=== PATIENT | male | born 1990 | race Two or more races ===

== ENCOUNTER 2018-01-20 21:06 | Emergency (ER) | payer OTHER, BC ==
[~2018-01-20] VITALS: Ht 175.3 cm; Wt 63.5 kg
[2018-01-20 21:18] VITALS: BP 141/78
--- NOTE | 2018-01-20 21:21 | NUR ---
PT TO ER BED 14. BIB [facility]/[employer] IN CUSTODY FROM STREET FOR ETOH/OTB. PT PLACED ON AUTO BATTERY BUILDER. VSS/RESP EVEN UNLABORED/NAD NOTED/SKIN WARM AND DRY/AFEBRILE/DENIES N-V-D/AOX4. AWAITNG MD RAINES.
== END 2018-01-20 23:00 ==
LOC: ER 21:10
DX: S90.512A Abrasion, left ankle, initial encounter (principal); S80.212A Abrasion, left knee, initial encounter; F10.129 Alcohol abuse with intoxication, unspecified; R00.0 Tachycardia, unspecified; X50.9XXA Other and unspecified overexertion or strenuous movements or postures, initial encounter; Y93.89 Activity, other specified; Y92.89 Other specified places as the place of occurrence of the external cause; Y99.8 Other external cause status; Y90.9 Presence of alcohol in blood, level not specified
CPT/HCPCS: A4606; Z7610